=== PATIENT | female | born 1980 | race Caucasian/White ===

== ENCOUNTER → 2016-04-14 | Outpatient (CLI) | payer OTHER ==
[~2016-04-14] MED LIST: PRENTAB26 PO
[2016-04-18 02:37] LABS: CHOCOLATE CLASS 0; CHOCOLATE IGE <0.10 KU/L
[2016-04-20 02:20] LABS: CLAM CLASS 0; CLAM IGE <0.10 KU/L; CODFISH CLASS 0; CRAB CLASS 0; CRAB IGE <0.10 KU/L; LOBSTER CLASS 0; LOBSTER IGE <0.10 KU/L; SHRIMP CLASS 0; WHITEFISH CLASS 0; WHITEFISH IGE <0.10 kU/L (<0.35)
[2016-04-21 12:15] LABS: REFERENCE QUEST TEST REPORT
== END | disposition home or self-care (01) ==
LOC: C.LABBC 12:35
PROVIDERS: ATTEND Internal Medicine Pulmonary Disease
DX: T78.40XA Allergy, unspecified, initial encounter (principal); X58.XXXA Exposure to other specified factors, initial encounter

== ENCOUNTER 2017-05-02 15:31 | Emergency (ER) | payer OTHER ==
[~2017-05-02] VITALS: Ht 158.8 cm; Wt 72.7 kg
[2017-05-02 15:35] VITALS: TEMP 36.5; Ht 158.8 cm; Wt 72.7 kg
[2017-05-02] MEDS ORDERED: ONDANSETRON INJ 2 MG/ML 2 ML VIAL IV STA (16:06)
[2017-05-02] MEDS ORDERED: SODIUM CHLORIDE 0.9% 1000ML 1,000 ML IV STA (16:06)
--- NOTE | 2017-05-02 16:25 | DIAGNOSTIC IMAGING REPORT ---
CHEST ONE VIEW PORTABLE HISTORY: 36 years-old Female Chest Pain acute atypical chest pain COMPARISON: None available TECHNIQUE: Portable AP view of the chest FINDINGS: Cardiac mediastinal and hilar silhouettes are within normal limits. No pneumothorax, pleural effusion, focal airspace consolidation or overt pulmonary edema. Bones of the chest appear grossly intact. IMPRESSION: No acute process. The above report was generated using voice recognition software. It may contain grammatical, syntax or spelling errors. Electronically signed by: Isaiah Trinidad M.D. 05/02/2017 4:24 PM Dictated Date/Time: 05/02/2017 4:23 PM
[2017-05-02 16:38] LABS: BASO % 0.5 %; BASO ABS # 0.03 K/uL (0-0.2); EOS % 0.8 %; EOS ABS # 0.05 K/uL (0-0.5); HEMATOCRIT 37.8 % (37-47); HEMOGLOBIN 12.6 g/dL (12.0-16.0); IG# 0.01 K/uL (0.00-0.02); LYMPH ABS # 1.37 K/uL (1.2-3.4); MEAN CELL VOLUME 79.1 fL (80-100); MEAN CORPUSCULAR HEMOGLOBIN 26.4 pg (25-34); MEAN CORPUSCULAR HGB CONC 33.3 g/dl (32-36); MEAN PLATELET VOLUME 9.3 fL (7.4-10.4); MONO % 7.4 %; MONO ABS # 0.44 K/uL (0.11-0.59); NEUT % 68.1 %; NEUT ABS # 4.05 K/uL (1.4-6.5); PLATELET COUNT 274 K/uL (130-400); RED CELL DISTRIBUTION WIDTH CV 13.8 % (11.5-14.5); WHITE BLOOD COUNT 5.95 K/uL (4.8-10.8)
[2017-05-02 16:58] LABS: BLOOD UREA NITROGEN 12 mg/dl (7-18); CARBON DIOXIDE 24 mmol/L (21-32); CREATININE 0.79 mg/dl (0.60-1.20); GLUCOSE 100 mg/dl (70-99); SODIUM 133 mmol/L (136-145)
[2017-05-02 17:08] LABS: CKMB 1.6 ng/ml (0.5-3.6)
[2017-05-02] MEDS ORDERED: POTASSIUM CHLORIDE 10 MEQ TABCR PO STA (17:11)
[2017-05-02 17:48] VITALS: BP 121/81; PULSE 94; O2SAT 100
--- NOTE | 2017-05-02 23:14 | EMERGENCY ROOM VISIT NOTE ---
History Report prepared by Gricelda: Alonzo Santana Under the Supervision of: Dr. Ramses Haywood D.O. First contact with patient: 15:59 Chief Complaint: TACHYCARDIA Stated Complaint: RACING HEART Nursing Triage Summary: Patient ambulatory to triage, states "I was sitting with my kids and my heart started racing. I have been super stressed and have had some caffiene today. I have a history of palpitations for several years now. Our stress have been much more severe. I have been having these episodes on and off for a few weeks now. I sometimes have chest pains with it but I don't today. I am having some breast pain this week because I am due for my period next week." History of Present Illness The patient is a 36 year old female who presents to the Emergency Room with complaints of resolved tachycardia that started at 1445. The patient states that she has a history of palpitations that have been worse within the last six months. She states that she has had tachycardia two times in the last 4 months. The patient states that her one episode occurred out of nowhere and the second episode occurred after experiencing stress. She reports that she has been stressed out lately, which has caused her not to sleep last night. The patient states that today at 1445 she was sitting with her kids she started to experience tachycardia. The patient states that after calming down, she went to walk upstairs and started to experience shortness of breath. She reports that this is her third and longest episode of tachycardia, lasting about 15 minutes. She reports that she normally has chest pains with her episodes, but denies experiencing any chest pain today. The patient states that she was anxious after the onset of the symptoms. The patient admits she had a cup of coffee this afternoon, which is not unusual, but states that she had her coffee on an empty stomach. The patient denies headache, change in vision, fevers, chest pain, shortness of breath, nausea, vomiting, diarrhea, pain with urination , and melena. The patient denies any history of heart disease, diabetes, smoking , swelling of legs, taking control pills, recent traveling, and sudden in her family. She reports a history of a mitral valve prolapse. The patient states that her last normal menstrual period was 3 weeks ago. Source of History: patient Onset: 1445 Position: other (global) Quality: other (global) Timing: resolved Associated Symptoms: + SOB, No fevers, No headache, No chest pain, No nausea , No vomiting, No melena, No diarrhea, No urinary symptoms Review of Systems See HPI for pertinent positives & negatives. A total of 10 systems reviewed and were otherwise negative. Past Medical & Surgical Medical Problems: (1) Anxiety (2) Palpitations Family History Patient reports no known family medical history. Social History Smoking Status: Never Smoker Marital Status: Housing Status: lives with family Occupation Status: employed Current/Historical Medications No Active Prescriptions or Reported Meds Allergies Coded Allergies: Iodine (Verified Allergy, Mild, RASH, 05/02/17) Shellfish (Verified Allergy, Unknown, SEAFOOD, 05/02/17) Tetracycline (Verified Allergy, Unknown, 05/02/17) Physical Exam Vital Signs Date Time Temp Pulse Resp B/P (MAP) Pulse Ox O2 Delivery O2 Flow Rate FiO2 05/02/17 17:48 94 17 121/81 100 05/02/17 17:17 94 17 121/81 100 Room Air 05/02/17 16:58 95 05/02/17 15:35 36.5 126 20 146/84 100 Room Air Physical Exam GENERAL: Sitting up in bed, anxious, non-toxic EYE EXAM: normal conjunctiva. OROPHARYNX: no exudate, no erythema, lips, buccal mucosa, and tongue normal and mucous membranes are moist NECK: supple, no nuchal rigidity, no adenopathy, non-tender, no JVD LUNGS: Clear to auscultation. Normal chest wall mechanics HEART: no murmurs, S1 normal and S2 normal ABDOMEN: abdomen soft, non-tender, normo-active bowel sounds, no masses, no rebound or guarding. BACK: Back is symmetrical on inspection and there is no deformity, no midline tenderness, no CVA tenderness. SKIN: no rashes and no bruising UPPER EXTREMITIES: upper extremities are grossly normal. LOWER EXTREMITIES: No pitting edema. Calves are equal bilaterally NEURO EXAM: Normal sensorium, cranial nerves II-XII grossly intact, normal speech, no gross weakness of arms, no gross weakness of legs. Gross sensation intact. Medical Decision & Procedures ER Provider Diagnostic Interpretation: Radiology results as stated below per my review and the radiologist's interpretation: CHEST ONE VIEW PORTABLE HISTORY: 36 years-old Female Chest Pain acute atypical chest pain COMPARISON: None available TECHNIQUE: Portable AP view of the chest FINDINGS: Cardiac mediastinal and hilar silhouettes are within normal limits. No pneumothorax, pleural effusion, focal airspace consolidation or overt pulmonary edema. Bones of the chest appear grossly intact. IMPRESSION: No acute process. The above report was generated using voice recognition software. It may contain grammatical, syntax or spelling errors. Electronically signed by: Isaiah Trinidad M.D. 05/02/2017 4:24 PM Dictated Date/Time: 05/02/2017 4:23 PM Laboratory Results 05/02/17 16:18 Red Blood Count 4.78, Mean Corpuscular Volume 79.1, Mean Corpuscular Hemoglobin 26.4, Mean Corpuscular Hemoglobin Concent 33.3, Mean Platelet Volume 9.3, Neutrophils (%) (Auto) 68.1, Lymphocytes (%) (Auto) 23.0, Monocytes (%) (Auto) 7.4, Eosinophils (%) (Auto) 0.8, Basophils (%) (Auto) 0.5, Neutrophils # (Auto) 4.05, Lymphocytes # (Auto) 1.37, Monocytes # (Auto) 0.44, Eosinophils # (Auto) 0.05, Basophils # (Auto) 0.03 05/02/17 16:18 Test 05/02/17 16:18 White Blood Count 5.95 K/uL (4.8-10.8) Red Blood Count 4.78 M/uL (4.2-5.4) Hemoglobin 12.6 g/dL (12.0-16.0) Hematocrit 37.8 % (37-47) Mean Corpuscular Volume 79.1 fL (80-100) Mean Corpuscular Hemoglobin 26.4 pg (25-34) Mean Corpuscular Hemoglobin Concent 33.3 g/dl (32-36) Platelet Count 274 K/uL (130-400) Mean Platelet Volume 9.3 fL (7.4-10.4) Neutrophils (%) (Auto) 68.1 % Lymphocytes (%) (Auto) 23.0 % Monocytes (%) (Auto) 7.4 % Eosinophils (%) (Auto) 0.8 % Basophils (%) (Auto) 0.5 % Neutrophils # (Auto) 4.05 K/uL (1.4-6.5) Lymphocytes # (Auto) 1.37 K/uL (1.2-3.4) Monocytes # (Auto) 0.44 K/uL (0.11-0.59) Eosinophils # (Auto) 0.05 K/uL (0-0.5) Basophils # (Auto) 0.03 K/uL (0-0.2) RDW Standard Deviation 39.0 fL (36.4-46.3) RDW Coefficient of Variation 13.8 % (11.5-14.5) Immature Granulocyte % (Auto) 0.2 % Immature Granulocyte # (Auto) 0.01 K/uL (0.00-0.02) D-Dimer 230 ug/L FEU (0-500) Anion Gap 7.0 mmol/L (3-11) Est Creatinine Clear Calc Drug Dose 91.2 ml/min Estimated GFR () 110.1 Estimated GFR (Non- 95.0 BUN/Creatinine Ratio 14.5 (10-20) Calcium Level 9.0 mg/dl (8.5-10.1) Total Creatine Kinase 133 U/L (26-192) Creatine Kinase MB 1.6 ng/ml (0.5-3.6) Creatine Kinase MB Ratio 1.2 (0-3.0) Troponin I < 0.015 ng/ml (0-0.045) Thyroid Stimulating Hormone (TSH) 1.580 uIu/ml (0.300-4.500) Laboratory results per my review. Medications Administered Medications (Trade) Dose Ordered Sig/Breann Route Start Time Stop Time Status Last Admin Dose Admin Sodium Chloride 1,000 ml @ 999 mls/hr Q1H1M STAT IV 05/02/17 16:06 05/02/17 17:06 DC 05/02/17 16:20 999 MLS/HR Potassium Chloride (Klor-Con M10) 40 meq NOW STAT PO 05/02/17 17:11 05/02/17 17:12 DC 05/02/17 17:32 40 MEQ ECG Indication: palpitations Rate (beats per minute): 115 Rhythm: sinus tachycardia Findings: other (ST changes in lateral, Normal axis, poor baseline) Change: Patient's electrocardiogram interpreted by me. REPEAT EKG: Sinus rhythm with a rate of 93. Normal axis, no ectopy. ED Course ED COURSE: Vital signs were reviewed and showed tachycardia The patients medical record was reviewed The above diagnostic studies were performed and reviewed. ED treatments and interventions as stated above. 1600: The patient was evaluated in room C10. A complete history and physical examination was performed. 1606: Ordered Zofran Injection 4 mg IV, Sodium Chloride 1000 ml @ 999 mls/hr IV. 1711: Ordered Potassium Chloride 40 meq PO. 1727: Upon reevaluation, the patient is resting comfortably.I discussed my findings with the patient and she understands and agrees with the treatment plan. Based on the patients age, coexisting illnesses, exam and lab findings the decision to treat as an outpatient was made. The patient remained stable while under my care. The patient appeared well at the time of discharge. Medical Decision Prior records/ancillary studies reviewed. Triage Nursing notes reviewed. The patient's history was concerning for palpitations. Differential diagnosis: Etiologies such as premature contractions, electrolyte abnormality, cardiac dysrhythmia, thyroid dysfunction, pulmonary embolism, infection, gastrointestinal, as well as others were entertained. Patient is a 36-year-old female who presents to the ER for palpitations. She notes she felt her heart rate racing. History of mitral valve prolapse. She did drink coffee on an empty stomach. No cardiac or PE risk factors. Patient has no other complaints at this time. EKG was unremarkable. CBC was unremarkable. Potassium was slightly low at 3. This was repleted. TSH normal. D-dimer negative. Patient was completely asymptomatic. She was given fluids. Heart rate trended down to the 80s. She was updated at bedside. She is discharged to follow-up as an outpatient for palpitations of uncertain etiology.Discussed with Pt concerning signs and symptoms to watch out for. Pt was instructed to follow up with their PCP and discussed with the patient their option to return to the ED at anytime for persistent or worsening symptoms. The appropriate anticipatory guidance and out-patient management, including indications for return to the emergency department, were explained at length to the patient and understood. Medication Reconcilliation Current Medication List: was personally reviewed by me Blood Pressure Screening Patient's blood pressure: Normal blood pressure Impression Primary Impression: Palpitations Additional Impression: Hypokalemia Scribe Attestation The scribe's documentation has been prepared under my direction and personally reviewed by me in its entirety. I confirm that the note above accurately reflects all work, treatment, procedures, and medical decision making performed by me. Departure Information Dispostion Home / Self-Care Prescriptions No Active Prescriptions or Reported Meds Referrals Francis Atkinson M.D. (PCP) Forms HOME CARE DOCUMENTATION FORM, IMPORTANT VISIT INFORMATION, WORK / SCHOOL INSTRUCTIONS Patient Instructions Heart Palpitations, My [facility] [employer] Additional Instructions Please follow up with your primary care doctor with in the next 24 hours. Any worsening of your symptoms, please return to the ED immediately. This includes any fevers greater than 100.4, worsening pain, chest pain, shortness breath, persistent nausea, vomiting, unable to eat or drink, or any other concerning signs or symptoms from your standpoint. Your potassium was slightly low at 3 and your giving oral potassium. This is unlikely to cause your symptoms. You do not need to have your potassium rechecked as it was repleted here in the ER. Problem Qualifiers
== END 2017-05-02 17:49 | disposition home or self-care (01) ==
LOC: C.EDB 15:32 → C.EDC 17:49
DX: R00.2 Palpitations (principal); E87.6 Hypokalemia; F41.9 Anxiety disorder, unspecified; Z91.013 Allergy to seafood; Z88.1 Allergy status to other antibiotic agents; Z91.048 Other nonmedicinal substance allergy status